=== PATIENT | male | born 2000 | race Hispanic/Latino ===

== ENCOUNTER 2020-04-18 11:16 | Observation (INO) | payer BC ==
[~2020-04-18] VITALS: Ht 172.7 cm; Wt 54.9 kg
--- NOTE | 2020-04-18 11:18 | NUR ---
PATIENT TO ROOM VIA WHEELCHIAR HOLDING RIGHT SIDE CHEST.
--- NOTE | 2020-04-18 12:16 | NUR ---
AWARE OF AWAITING LAB RESULTS, CALL GRANADOS WITHIN REACH.
--- NOTE | 2020-04-18 12:25 | NUR ---
PT DENIES ANY STRENUOUS ACTIVITY OR TRAUMA TO CHEST, STATES PAIN STILL PRESENT
--- NOTE | 2020-04-18 12:32 | NUR ---
PT AWARE OF NEED FOR URINE SPECIMEN AND URINAL PROVIDED.
[2020-04-18 12:34] LABS: HEMATOCRIT 40.7 % (39.0-50.0); HEMOGLOBIN 13.7 g/dl (14.0-18.0); IMMATURE GRANULOCYTES 0.3 % (0.0-5.0); MEAN CELL VOLUME 86.6 fL CALC (80.0-100.0); MEAN CORPUSCULAR HGB 29.1 pG CALC (26.0-32.0); MEAN CORPUSCULAR HGB CONC 33.7 g/dL CAL (32.0-36.0); NEUT# 4.27 thou/uL (1.82-7.42); RED BLOOD COUNT 4.7 mill/uL (4.70-6.10); RED CELL DISTRI WIDTH 12.2 % (11.5-15.5)
[2020-04-18 12:52] LABS: ALBUMIN 4.5 g/dL (3.2-5.0); ALKALINE PHOSPHATASE 78 u/l (38-126); ANION GAP 12 (6-22 (CALC)); BILIRUBIN, TOTAL 0.5 mg/dL (0.0-1.4); BUN 11 mg/dL (9-20); BUN/CREATININE RATIO 11 (12-20 (CALC)); CARBON DIOXIDE 27 mmol/l (22-30); CHLORIDE 103 mmol/l (95-108); GFR > 60 ML/MIN (>=60 (CALC)); GFR FOR AFR.AMER. > 60 ML/MIN (>=60 (CALC)); POTASSIUM 3.9 mmol/l (3.5-5.1); SGOT/AST 25 u/l (17-59); SODIUM 138 mmol/l (137-146); TOTAL PROTEIN 7.5 g/dL (6.3-8.2)
[2020-04-18 13:03] LABS: MYOGLOBIN 34 ng/mL (0 - 121)
--- NOTE | 2020-04-18 13:35 | NUR ---
PT AWARE OF ELEVATED TROPONIN AND NEED TO REPEAT, RESTING COMFORTABLE AT THIS TIME, NO NEW COMPLAITNS, CALL GRANADOS WITHIN REACH
--- NOTE | 2020-04-18 14:20 | NUR ---
PT AWARE OF PENDING TROPONIN, NO NEW COMPLAINTS OFFERED, FAMILY MEMBER AT BEDSIDE CALL GRANADOS WITHIN REACH
--- NOTE | 2020-04-18 15:20 | NUR ---
PATIENT RESTING IN STRETCHER IN NAD AND DENIES ANY NEEDS. CALL GRANADOS WITHIN REACH.
--- NOTE | 2020-04-18 16:05 | NUR ---
PATIENT RESTING IN STRETCHER. MONITOR SHOWING SINUS RHYTHM AT A RATE OF 54. PATIENT DENIES ANY PAIN AT THIS TIME. CALL GRANADOS WITHIN REACH.
--- NOTE | 2020-04-18 16:37 | NUR ---
RECOMMEDNED ADMIT FOR ALICIA, AND HINA COTTO ACTING GALVANOMETER ASSEMBLER AT BEDSIDE FOR DISCUISSION WITH PT AND HIS MOTHER, ALL QUESTIONS ANSWERED. PT AGREEABLE TO ADMISSION.
--- NOTE | 2020-04-18 17:07 | NUR ---
MOTHER BROUGHT PT FAST FOOD, TOLERATED WELL, NO NEW COMPLAITNS OFFERED
--- NOTE | 2020-04-18 17:15 | NUR ---
AWARE OF PENDING ADMISSION AND AWIATING LAB RESUTLS FOR BED PLACEMENT, MOTHER REMAINS AT BEDSIDE, WILL CONTINUE TO MONITOR.
--- NOTE | 2020-04-18 18:20 | NUR ---
PT REPORT CALLED TO MASTER RN ON MED SURG
--- NOTE | 2020-04-18 18:38 | NUR ---
PT TRASNPORTED TO MED SURG VIA , ON TELMETRY, ALL BELONGINGS SENT WIHT PT AND MOM AT SIDE AT TIME OF TRANSFER
--- NOTE | 2020-04-18 18:40 | NUR ---
PT TO [facility] ROOM 278 VIA WHEELCHAIR ACCOMPANIED BY ER NURSE. PT ABLE TO TRANSFER SELF TO BED. ORIENTED TO ROOM AND UNIT. CALL LIGHT IN REACH. WILL CONTINUE TO MONITOR.
[2020-04-18 19:00] VITALS: BP 115/63
--- NOTE | 2020-04-18 19:00 | NUR ---
PT RESTING IN BED, MOTHER AT BEDSIDE, ORIENTED PT TO ROOM AND CALL LIGHT, DISCUSSED POC, TROPONINS AND PROTONIX, PT VERBALIZED UNDERSTANDING. PT DENIES ANY CHEST PAIN AT THIS TIME. ADMISSION ASSESSMENT COMPLETED, CALL LIGHT IN REACH,CONTINUE TO MONITOR.
--- NOTE | 2020-04-18 19:26 | NUR ---
NOTIFIED OF TROPONIN CRITICAL RESULT. NO NEW ORDERS RECEIVED, CONTINUE TO MONITOR, PT DENIES ANY PAIN, ON HIS CELL PHONE, MOTHER AT BEDSIDE, PT REQUESTING TO SHOWER, ASSISTED BY MOTHER. CONTINUE TO MONITOR.
--- NOTE | 2020-04-18 22:32 | NUR ---
PT RESTING IN BED WATCHING TV, NO SIGNS OF DISTRESS NOTED, RESP EVEN AND UNLABORED. PT VOICES NO NEEDS OR COMPLAINTS AT THIS TIME, CALL LIGHT IN REACH,CONTINUE TO MONITOR.
[2020-04-19] VITALS: BP 108/58
[2020-04-19 04:00] VITALS: BP 99/48
--- NOTE | 2020-04-19 05:47 | NUR ---
PT RESTING IN BED EASILY AROUSED TO VERBAL STIMULI, PT VOICES NO NEEDS OR COMPLAINTS AT THIS TIME, CALL LIGHT IN REACH,CONTINUE TO MONITOR.
[2020-04-19 06:41] LABS: ANION GAP 10 (6-22 (CALC)); BUN 13 mg/dL (9-20); BUN/CREATININE RATIO 13 (12-20 (CALC)); CARBON DIOXIDE 30 mmol/l (22-30); CHLORIDE 103 mmol/l (95-108); GFR > 60 ML/MIN (>=60 (CALC)); GFR FOR AFR.AMER. > 60 ML/MIN (>=60 (CALC)); POTASSIUM 4.4 mmol/l (3.5-5.1); SODIUM 138 mmol/l (137-146)
--- NOTE | 2020-04-19 08:08 | NUR ---
PT. LYING SUPINE. DENIES PAIN OR CONCERNS/COMPLAINTS. BOWEL SOUNDS HYPOACTIVE. STATES HE ONLY HAS A STOOL ONCE A WEEK. ABLE TO VERBALIZE NEEDS.
[2020-04-19 12:00] VITALS: BP 105/46
--- NOTE | 2020-04-19 15:48 | NUR ---
PT. AWAITING ECHO /DOPPLER STUDY PRIOR TO POSSIBLE DISCHARGE.
[2020-04-19 16:00] VITALS: BP 118/60
[2020-04-19 18:30] VITALS: BP 114/56
--- NOTE | 2020-04-19 18:51 | NUR ---
WHILE WAITING FOR THE ECHO REPORT, PT HAD ACCELERATED RHYTHM, 140 BPM. PT WAS ASYMPTOMATIC. PHOTO OF RHYTHM STRIP WAS TEXTED TO DR RAMOS, AWAITING HIS RESPONSE.
--- NOTE | 2020-04-19 19:45 | NUR ---
NOTIFIED DR. RAMOS OF ECHO RESULT.
--- NOTE | 2020-04-19 20:00 | NUR ---
ASSESSMENT COMPLETED. PT. SITTING UP IN BED AND DENIES NEEDS/PAIN. PT. IS ON HIS PHONE. TELEMETRY IN PLACE. UPDATED ON POC. ENCOURAGED TO CALL FOR ANY NEEDS. CALL LIGHT IS IN REACH.
--- NOTE | 2020-04-19 23:39 | NUR ---
PT. RESTING IN BED WITH NO DISTRESS NOTED; DENIES NEEDS. CALL LIGHT IS IN REACH; VS OBTAINED.
[2020-04-20] VITALS (7 sets, daily range): BP systolic 93–140; BP diastolic 50–68
--- NOTE | 2020-04-20 02:18 | NUR ---
PT. RESTING IN BED WITH NO DISTRESS NOTED AND EYES CLOSED. CALL LIGHT IS IN REACH.
--- NOTE | 2020-04-20 04:30 | NUR ---
RESTING IN BED ON LEFT SIDE WITH EYES CLOSED; NO DISTRESS NOTED;RESP. EVEN AND UNLABORED. TELE IN PLACE; CALL LIGHT IS IN REACH.
--- NOTE | 2020-04-20 07:30 | NUR ---
RECIEVED REPORT FROM KIRTI TOMAS. PT SLEEPING IN LOW FOWLERS POSITION UPON ENTERING ROOM. RESPIRTIONS ARE EVEN AND UNLABORED WITH NO SIGN SOF DISTRESS NOTED. NO SIGNS OF ANY PAIN OR DISCOMFORTS AT THIS TIME. TELE MONITOIRNG AND SAFTEY PRECAUTIONS ARE IN PLACE WITH CALL LIGHT IN REACH. WILL CONTINUE TO MONITOR
--- NOTE | 2020-04-20 08:12 | NUR ---
PT RESTING IN SEMI FOWLERS POSTIION ON PHONE UPON ENTERING ROOM. INTRODUCED SELF TO PT AND DISCUSSED POC. PT IS A/OX3. ASSESMENT AND VITALS COMPLETED AT THIS TIME. BP 114/65, HR 83, O2 100% ON ROOM AIR. RESPIRATIONS ARE EVEN AND UNLABORED WITH NO SIGNS OF DISTRESS NOTED. LUNG SOUNDS ARE CLEAR. HEART RHYTHM IS NORMAL WITH TELE IN PLACE. BOWEL SOUNDS ARE ACTIVE IN ALL QUADRANTS, LAST REPORTED BM 04/19/2020. RADIAL AND PEDAL PULSES ARE STRONG WITH NORMAL CAPILLARY REFILL. #20 IN LAC FLUSHED, SITE APPREARS HEALTHY AND PATENT. PT DENIES ANY PAINS OR DISCOMFORTS AT THIS TIME.ALL SAFETY PRECAUTIONS ARE IN PLACE WITH CALL LIGHT IN REACH. WILL CONTINUE TO MONITOR
--- NOTE | 2020-04-20 10:58 | NUR ---
DR ROBLES AND CRISTIANO, ANRP AT BEDSIDE
--- NOTE | 2020-04-20 12:17 | NUR ---
PT RESTING IN SEMI FOWLERS POSTIION ON PHONE. RESPIRATIONS ARE EVEN AND UNLABORED WITH NO SIGNS OF DISTRESS NOTED. PT DENIES OF ANY PAIN OR DISCOMFORTS AT THIS TIME. ALL SAFETY PRECAUTIONS ARE IN PLACE WITH CALL LIGHT IN REACH AND MOTHER AT BEDSIDE. JOSE A CONTINUE TO MONITOR
[2020-04-20] MEDS ORDERED: LOPRESSOR25 MG PO (12:58)
--- NOTE | 2020-04-20 13:09 | NUR ---
WRITTER INFORMED THAT TELE MONTORING CALLED STATING PT HR WAS IN 160. PT AMBULATING BACK TO BED FROM BATHROOM. VITALS OBATINED. PT REMAINS ASYSMPTOMATIC. PT DENIES ANY PAIN OR DISCOMFORTS. ALL SAFETY PRECAUTIONS ARE IN PLACE WITH CALL LIGHT IN REACH AND MOTHER AT BEDSIDE. WILL CONTINUE TO MONITOR
--- NOTE | 2020-04-20 16:19 | NUR ---
PT RESTING IN SEMI FOLWERS POSITION ON PHONE. RESPIRATIONS ARE EVEN AND UNLABORED WITH NO SIGNS OF DISTRESS NOTED. PT DENIES ANY NEEDS AT THIS TIME. ENCOURAGED PT TO CALL FOR ASSISTANCE. ALL [facility] PRCAUTIONS ARE IN PLACE WITH CALL LIGHT IN REACH AND SISTER AT BEDSIDE. WILL CONTINUE TO MONITOR
--- NOTE | 2020-04-20 17:30 | NUR ---
PT TRANSPORTED TO CT VIA WHEELCHAIR ACCOMPAINED BY KIMBER ZHAO IN STABEL CONDITION.
--- NOTE | 2020-04-20 17:43 | NUR ---
PT RETURNED TO [facility] ROOM 278 VIA WHEELCHAIR ACCOMPAINED BY KIMBER ZHAO.PT BACK INTO BED. RESPIRATIONS ARE EVEN AND UNLABORED WITH NO SIGNS OF DISTRESS NOTED. ALL SAFETY PRECAUTIONS ARE IN PLACVE WITH CALL LIGHT IN REACH. WILL CONTINUE TO MONITOR
--- NOTE | 2020-04-20 20:00 | NUR ---
ASSESSMENT COMPLETED. NO DISTRESS NOTED; DENIES NEEDS/PAIN. VSS. ENCOURAGED TO CALL FOR ANY NEEDS. TELEMETRY IN PLACE.
--- NOTE | 2020-04-20 23:00 | NUR ---
RESTING IN BED WITH EYES CLOSED; RESP. EVEN AND UNLABORED. CALL LIGHT IS IN REACH.
[2020-04-21 00:18] VITALS: BP 115/65
[2020-04-21 04:01] VITALS: BP 106/67
--- NOTE | 2020-04-21 04:03 | NUR ---
pt. resting in bed with no distress noted; denies needs/pain. vss. call light is in reach.
--- NOTE | 2020-04-21 07:18 | NUR ---
RECIEVED REPORT FROM KIRTI TOMAS. PT SLEEPING IN LOW FOWLERS POSITION UPON ENTERING ROOM. RESPIRATIONS ARE EVEN AND UNLABORED WITH NO SIGNS OF DISTRESS NOTED. TELE MONITORING IN PLACE. NO SIGNS OF ANY PAIN OR DISCOMFORTS AT THIS TIME. ALL SAFTEY PRECAUTIONS ARE IN PLACE WITH CALL LIGHT IN REACH. WILL CONTINUE TO MONITOR
[2020-04-21 07:43] VITALS: BP 114/62
--- NOTE | 2020-04-21 07:43 | NUR ---
PT RESTING IN SEMI FOWLERS POSTIION UPON ENTERING ROOM. INTRRODUCED SEFLF TO PT AND DISCUSSED POC. PT IS A/O X3. ASSESSMENT AND VITALS COMPLETED AT THSI TIME. BP 114/62, HR 82, O2 99% ON ROOM AIR. RESPIRATIONS ARE EVEN AND UNLABORED WITH NO SIGNS OF DISTRSS NOTED. LUNG SOUNDS ARE CLEAR. HEART RHYTHM IS NORMAL WITH TELE MONITORING IN PLACE. BOWEL SOUNDS ARE ACTIEV IN ALL QUDRANTS, LAST REPORTED BM 04/20/2020. RADIAL AND PEDAL PULSES ARE STRONG WITH NORMAL CAPILLARY REFILL. #20G IN LAC FLUSHED, SITE APPEARS HEALTHY AND PATENT. PT DENIES ANY PAIN OR DISCOMFORTS AT THIS TIME. ALL SAFETY PREACUTIONS ARE IN PLACE WITH CALL LIGHT IN REACH. WILL CONTINUE TO MONITOR
--- NOTE | 2020-04-21 10:05 | NUR ---
DR ROBLES AND CRISTIANO, ANRP AT BEDSIDE DISCUSSING POC WITH PT.
[2020-04-21 10:58] VITALS: BP 100/52
--- NOTE | 2020-04-21 11:10 | NUR ---
PT AND MOTHER EDUACTED ON DISCHARGE INSTRUCTIONS WITH ALTAJAR CARD GIVEN TO BOTH PT AND MOTHER . PT VERBAILZED UNDERSTANDING. MOTHER REQUSTED TO SPEAK TO DOCTOR. WRITTER INFORMED PT THAT DOCTOR IN NOT CURRENTLY AT THE HOSPITAL BUT ANRP WOULD BE NOIFIED. IV REMOVED WITH CATHATER STILL INTACT. TELE MONITORING REMOVED. ER NOTIFIED. ALL SAFETY PRECAUTIONS ARE IN PLACE WITH CALL LIGHT IN REACH. WILL CONTINUE TO MONITOR
--- NOTE | 2020-04-21 11:17 | NUR ---
CRISTIANO, ANRP AT BEDSIDE WITH PT AND MOTHER.
--- NOTE | 2020-04-21 11:23 | NUR ---
Discharge instructions given. Patient verbalizes understanding of same. Discharged in stable condition via Ambulatory to Home with family. All belongings sent with pt. PT DISCHARGED WITH DISCHARGE INSTRUCTIONS IN POLISH AND MAORI. PT REFUSED WHEELCHAIR. PT AMBULATED WITH STEADY GAIT WITH MOTHER AT SIDE. PT LEFT WITH ALL PAPERWORK AND BELONGINGS.
== END 2020-04-21 11:20 | disposition home or self-care (01) | DRG 313 ==
LOC: ED 11:16 → ED-I 16:27 → ED 16:41 → MS2 16:42
PROVIDERS: Emergency Medicine; Internal Medicine; ADMIT Internal Medicine; ATTEND Internal Medicine
DX: R07.9 Chest pain, unspecified (principal); R00.0 Tachycardia, unspecified; Z20.828 Contact with and (suspected) exposure to other viral communicable diseases
CPT/HCPCS: G0378; Q9967; S0164